=== PATIENT | male | born 1980 | race Caucasian/White ===

== ENCOUNTER 2021-06-22 20:31 | Observation (INO) | payer OTHER ==
[2021-06-22] MEDS ORDERED: DEXAMETHASONE SOD PHOSPHATE 4 MG/1 ML VIAL IVPUSH ONE (22:59)
[2021-06-22 23:03] LABS: VENOUS BASE EXCESS 1.6 mmol/L (-2-2); VENOUS O2 SATURATION 27.8 % (70-80); VENOUS PCO2 47.2 mmHg (38-52); VENOUS PH 7.382 (7.310-7.410)
[2021-06-22 23:11] LABS: BASO % 0.5 % (0-2.0); EOS % 0.1 % (0-4.5); HEMATOCRIT 47.5 % (35.4-49); HEMOGLOBIN 16.5 GM/dL (11.7-16.9); LYMPH % 7.2 % (8-40); MCH 28.5 pg (25.7-33.7); MCHC 34.7 g/dl (32.0-35.9); MEAN CELL VOLUME 82.1 fl (80-96); MEAN PLT VOLUME 7.3 fl (7.5-11.1); MONO % 3.3 % (3.8-10.2); NEUT % 88.9 % (42.8-82.8); PLATELET COUNT 253 10^3/uL (134-434); RBC 5.79 M/mm3 (4.00-5.60); RDW 13.2 % (11.9-15.9); WHITE BLOOD COUNT 5.3 K/mm3 (4.0-10.0)
[2021-06-22 23:17] LABS: INR 1.15 (0.83-1.09); PROTHROMBIN TIME (PATIENT) 12.9 SEC (9.7-13.0)
[2021-06-22 23:19] LABS: ACTIVATED PTT 32.6 SECONDS (25.2-36.5)
[2021-06-22 23:29] LABS: CHLORIDE 98 mmol/L (98-107); SODIUM 133 mmol/L (136-145)
[2021-06-22 23:31] LABS: ALBUMIN 3.6 g/dl (3.4-5.0); ANION GAP 9 MMOL/L (8-16); BLOOD UREA NITROGEN 12.3 mg/dL (7-18); CALCIUM 8.7 mg/dL (8.5-10.1); CO2 26 mmol/L (21-32); GLUCOSE,RANDOM 129 mg/dL (74-106)
[2021-06-22 23:34] LABS: BILIRUBIN,DIRECT 0.1 mg/dL (0.0-0.2); CREATININE 0.9 mg/dL (0.55-1.3); SGOT/AST 43 U/L (15-37); SGPT/ALT 58 U/L (13-61)
[2021-06-22 23:36] LABS: BILIRUBIN,TOTAL 0.4 mg/dL (0.2-1); LDH 292 U/L (87-246)
[2021-06-22 23:37] LABS: ALK PHOS 71 U/L (45-117)
[2021-06-22] MEDS ORDERED: DEXAMETHASONE SOD PHOSPHATE 10 MG/1 ML VIAL ONE (23:39)
[2021-06-23] MEDS ORDERED: ACETAMINOPHEN 325 MG TABLET (FP) PO PRN (01:05)
[2021-06-23] MEDS ORDERED: ALBUTEROL SO4 HFA INHALER IH PRN (01:05)
[2021-06-23 01:13] LABS: EPI CELLS 6 /uL (0-25.1); HYALINE CASTS 1 /uL (0-3.1); PH,URINE 6.5 (5.0-8.0); URINE APPEARANCE CLEAR; URINE BACTERIA 2 /uL (0-1359); URINE BILIRUBIN NEGATIVE (NEGATIVE); URINE COLOR YELLOW; URINE GLUCOSE (UA) NEGATIVE (NEGATIVE); URINE KETONE TRACE (NEGATIVE); URINE LEUK ESTERASE NEGATIVE (NEGATIVE); URINE NITRITE NEGATIVE (NEGATIVE); URINE PROTEIN 2+ (NEGATIVE); URINE RBC 5 /uL (0-23.9); URINE WBC 10 /uL (0-25.8)
[2021-06-23 05:11] VITALS: BMI 32.5
[2021-06-23 08:45] LABS: BASO % 0.2 % (0-2.0); HEMATOCRIT 44.3 % (35.4-49); HEMOGLOBIN 15.5 GM/dL (11.7-16.9); LYMPH % 14.8 % (8-40); MCH 28.8 pg (25.7-33.7); MCHC 35.1 g/dl (32.0-35.9); MEAN PLT VOLUME 7.6 fl (7.5-11.1); MONO % 7.1 % (3.8-10.2); NEUT % 77.9 % (42.8-82.8); PLATELET COUNT 264 10^3/uL (134-434); RBC 5.39 M/mm3 (4.00-5.60); RDW 13.4 % (11.9-15.9); WHITE BLOOD COUNT 2.6 K/mm3 (4.0-10.0)
[2021-06-23 09:10] LABS: CALCIUM 8.7 mg/dL (8.5-10.1)
[2021-06-23 09:11] LABS: ALBUMIN 3.2 g/dl (3.4-5.0); BLOOD UREA NITROGEN 16.6 mg/dL (7-18); MAGNESIUM 2.4 mg/dL (1.8-2.4)
[2021-06-23 09:13] LABS: PHOSPHOROUS 4.2 mg/dL (2.5-4.9)
[2021-06-23 09:14] LABS: CREATININE 0.7 mg/dL (0.55-1.3)
[2021-06-23 09:15] LABS: BILIRUBIN,TOTAL 0.5 mg/dL (0.2-1); TOT PROT 7.3 g/dl (6.4-8.2)
[2021-06-23] MEDS: PANTOPRAZOLE SODIUM 40 MG VIAL IVPUSH SCH (11:27)
[2021-06-23] MEDS: ENOXAPARIN NA (PORCINE) 40 MG/0.4 ML DISP.SYRIN SQ SCH (11:28)
[2021-06-23] MEDS: DEXAMETHASONE SOD PHOSPHATE 10 MG/1 ML VIAL IVPUSH SCH (11:30)
[2021-06-23] MEDS: BUDESONIDE/FORMETEROL FUMARATE 80/4.5 mcg INHALER IH SCH (21:48)
[2021-06-24 09:47] LABS: HEMATOCRIT 44.8 % (35.4-49); HEMOGLOBIN 15.6 GM/dL (11.7-16.9); MCH 28.9 pg (25.7-33.7); MCHC 34.9 g/dl (32.0-35.9); MEAN CELL VOLUME 82.7 fl (80-96); MEAN PLT VOLUME 7.7 fl (7.5-11.1); PLATELET COUNT 287 10^3/uL (134-434); RBC 5.41 M/mm3 (4.00-5.60); RDW 13.3 % (11.9-15.9); WHITE BLOOD COUNT 8.8 K/mm3 (4.0-10.0)
[2021-06-24 10:01] LABS: CREATININE 0.7 mg/dL (0.55-1.3); PHOSPHOROUS 3.9 mg/dL (2.5-4.9)
[2021-06-24 10:02] LABS: BILIRUBIN,TOTAL 0.4 mg/dL (0.2-1); CALCIUM 8.6 mg/dL (8.5-10.1)
[2021-06-24 10:03] LABS: BLOOD UREA NITROGEN 21.2 mg/dL (7-18); MAGNESIUM 2.5 mg/dL (1.8-2.4)
[2021-06-24] MEDS: ENOXAPARIN NA (PORCINE) 40 MG/0.4 ML DISP.SYRIN SQ SCH (10:24)
[2021-06-24] MEDS: PANTOPRAZOLE SODIUM 40 MG VIAL IVPUSH SCH (10:24)
[2021-06-24] MEDS: DEXAMETHASONE SOD PHOSPHATE 10 MG/1 ML VIAL IVPUSH SCH (10:24)
[2021-06-24] MEDS: BUDESONIDE/FORMETEROL FUMARATE 80/4.5 mcg INHALER IH SCH (10:25)
[2021-06-24 10:26] LABS: PLATELET ESTIMATE NORMAL
[2021-06-24 10:40] LABS: ANISOCYTOSIS 0; MACROCYTOSIS 0
[2021-06-24 15:35] VITALS: BP 125/73; PULSE 87; TEMP 98.7
== END 2021-06-24 17:45 | disposition home or self-care (01) ==
LOC: JER 20:31 → JERBED 06-23 00:17 → INTOOBSV 06-23 00:17 → UNDOADMOB 06-23 00:17 → J5S 06-23 03:29 → JERBED 06-23 03:29 → J8W 06-23 03:56 → J5S 06-23 03:56 → J8W 06-24 13:30 → JERBED 06-24 13:30
PROVIDERS: ADMIT Hospitalist; ATTEND Internal Medicine
PROC: 3E033GC Introduction of Other Therapeutic Substance into Peripheral Vein, Percutaneous Approach (ICD-10-PCS; principal; 2021-06-24)
PROC: 3E013GC Introduction of Other Therapeutic Substance into Subcutaneous Tissue, Percutaneous Approach (ICD-10-PCS; 2021-06-24)
PROC: 3E0F7SF Introduction of Other Gas into Respiratory Tract, Via Natural or Artificial Opening (ICD-10-PCS; 2021-06-24)
DX: U07.1 COVID-19 (principal); J96.01 Acute respiratory failure with hypoxia
CPT/HCPCS: 36415; 71045-TC-FY; 80053; 81003; 82248; 82550; 82728; 82803; 82962; 83605; 83615; 83735; 84100; 84484; 85025; 85379; 85610; 85730; 86140; 87040; 87086; 87804; 93005; 93010; 94640; 94761; 96372; 96374; 96375; 99285-25; C9803; G0378; J1100; U0003; U0005